=== PATIENT | female | born 1955 | race Asian ===

== ENCOUNTER 2018-10-21 07:30 | Day surgery (SDC) | payer MEDICARE, BC ==
[2018-10-21] MEDS: SOD CHLORIDE 0.45% 1,000 ML IV (08:00)
[2018-10-21] MEDS: DIAZEPAM 5 MG TAB PO (08:51)
[2018-10-21] MEDS: DIPHENHYDRAMINE 50 MG CAP PO (08:52)
[2018-10-21] MEDS: FAMOTIDINE 20 MG TAB PO (08:52)
[2018-10-21] MEDS ORDERED: HEPARIN 1000 UNITS/ML 10 ML INJ (09:11)
[2018-10-21] MEDS ORDERED: FENTAnyl 50 MCG/ML VIAL (09:11)
[2018-10-21] MEDS ORDERED: NITROGLYCERIN (IC) 100 MCG/ML INJ (09:11)
[2018-10-21] MEDS ORDERED: LIDOCAINE 1% (MDV) 20 ML INJ (09:11)
[2018-10-21] MEDS ORDERED: MIDAZOLAM 1 MG/ML 2 ML INJ (09:11)
[2018-10-21] MEDS ORDERED: IODIXANOL LOCM 100 ML BTL (09:11)
[2018-10-21] MEDS ORDERED: VERAPAMIL 5 MG INJ (09:11)
[2018-10-21] MEDS ORDERED: SOD CHLORIDE 0.9% 500 ML (09:44)
[2018-10-21] MEDS ORDERED: ONDANSETRON 4 MG INJ IV (11:30)
[2018-10-21] MEDS ORDERED: AL HYDROX/MG HYDROX/SIMETH 30 ML CUP PO (11:30)
[2018-10-21] MEDS ORDERED: morphine 2 MG INJ IV (11:30)
[2018-10-21] MEDS ORDERED: ACETAMINOPHEN 325 MG TAB PO (11:30)
[2018-10-21] MEDS: ACCU-CHEK XX (12:05)
[2018-10-21] MEDS: SOD CHLORIDE 0.9% 1,000 ML IV (12:24)
== END 2018-10-21 20:35 | disposition home or self-care (01) ==
LOC: SDS 07:30
DX: I35.0 Nonrheumatic aortic (valve) stenosis (principal); E78.00 Pure hypercholesterolemia, unspecified; I48.0 Paroxysmal atrial fibrillation; I10 Essential (primary) hypertension; I25.10 Atherosclerotic heart disease of native coronary artery without angina pectoris
CPT/HCPCS: 71045; 82962; 93460